=== PATIENT | male | born 1960 | race Two or more races ===

== ENCOUNTER 2025-06-06 10:52 | Emergency (ER) | payer SELFPAY ==
--- NOTE | 2025-06-06 11:16 | ED_ITS ---
<Statement entered by Ilana Santos DO - 06/06/25 14:05> I was consulted by the SKYLAR, and we discussed the complexity of the problems being addressed. I approved the treatment and management plan for this patient's care in the emergency department, thus performing a substantive portion of the medical decision making. Ilana Santos DO Discharge Plan Disposition Patient Disposition: Home, Self-Care Condition: Good Prescriptions Prescriptions: New methocarbamol 750 mg tablet 750 mg PO Q6H PRN (Reason: muscle spasm) Qty: 20 0RF Referrals Follow up/Referrals: Provider,Referral, MD [Primary Care Provider, Medical] - See instructions Activity Restrictions/Add. Instructions Additional Instructions/Restrictions: I recommend staying hydrated drinking electrolyte containing sports drinks while you are working outside. I would recommend reducing your heat exposure for the next 48 hours. If you have any persistent new or worsening signs or symptoms please follow-up with your PCP return to the ER as needed. Clinical Impressions Clinical Impression: Rhabdomyolysis Qualifiers: Rhabdomyolysis type: non-traumatic Qualified Code(s): M62.82 - Rhabdomyolysis Instructions Patient Instructions: DI for Diarrhea and Traveler's Diarrhea -- Adult, DI for Diarrhea and Traveler's Diarrhea -- Child, DI for Nausea -- Adult, DI for Nausea -- Child Print Language Print Language: [place] Discharge ED Provider: Ilana Santos General Adult HPI General Chief complaint: Nausea/Vomiting/Diarrhea Stated complaint: weak, neck pain, arm pain. Time Seen by Provider: 06/06/25 11:16 History of Present Illness HPI narrative: Patient presents for evaluation of multiple myalgias. Patient works outside [employer] and noted that he was very hot on . He started having muscle cramps over the weekend all over. He is taken nothing for it but also has not tried to treat it at home. He has no nausea vomiting diarrhea chest pain shortness of breath hemoptysis hematochezia melena hematemesis hematuria dysuria. Related Data Previous Rx's ?Medication ?Instructions ?Recorded methocarbamol 750 mg tablet 750 mg PO Q6H PRN muscle s pasm #20 06/06/25 tabs Allergies Allergy/AdvReac Type Severity Reaction Status Date / Time No Known Allergies Allergy Unverified 10/28/17 14:19 [facility] Disclaimer: The information contained in this section may have been updated after the patient was seen, as this information can be updated by other users. Social History Smoking Status: Current every day smoker alcohol intake: never current occupational status: employed Travel in the last 8 weeks?: None ROS Obtained: Yes Systems reviewed as appropriate & no additional complaints except as documented Physical Exam General General appearance: alert Respiratory Respiratory exam: Present normal lung sounds bilaterally Cardiovascular Cardiovascular exam: Present regular rate Neurological Exam Neurological exam: Present alert and oriented X3 Medical Decision Making Medical Records Medical records reviewed: Yes I reviewed the patient's medical records. Screening: Per USPSTF and CDC recommendations, given the prevalence of disease in our region, it is our hospital?s policy to screen for HIV and viral Hepatitis for all patients aged 18 and over and those with ongoing risk factors. Oswaldo Inquiry Pt receiving controlled substance: No Vital Signs: 06/06/25 11:27 06/06/25 11:31 06/06/25 12:00 Temperature 97.8 F Temperature Source Oral Pulse Rate 69 79 Respiratory Rate 16 Blood Pressure 127/94 H 133/75 Blood Pressure [Right Arm] 156/90 H Blood Pressure Mean [Right Arm] 112 Blood Pressure Source Blood Pressure Source [Right Arm] Automatic Cuff Blood Pressure Position 02 Sat by Pulse Oximetry 99 100 100 Oxygen Delivery Method Room Air 06/06/25 12:23 Temperature 97.8 F Temperature Source Oral Pulse Rate 72 Respiratory Rate 16 Blood Pressure 133/65 Blood Pressure [Right Arm] Blood Pressure Mean [Right Arm] Blood Pressure Source Automatic Cuff Blood Pressure Source [Right Arm] Blood Pressure Position Sitting 02 Sat by Pulse Oximetry Oxygen Delivery Method Room Air Lab Data Lab results reviewed: Yes I reviewed the patient's lab results. Lab Results 06/06/25 11:35: WBC 6.7, RBC 4.78, Hgb 16.0, Hct 46.5, MCV 97.3 H, MCH 33.5 H, MCHC 34.4, RDW 12.3, Plt Count 204, MPV 10.6 H, Neut % (Auto) 64.8, Lymph % (Auto) 26.8, [place] % (Auto) 7.0, Eos % (Auto) 0.4, Baso % (Auto) 0.7, Neut # (Auto) 4.4, Lymph # (Auto) 1.8, [place] # (Auto) 0.5, Eos # (Auto) 0.0, Baso # (Auto) 0.1, ESR 22 H, PT 10.7, INR 0.96, D-Dimer 0.47, Sodium 137, Potassium 4.2, Chloride 99, Carbon Dioxide 29, Anion Gap 13.2, BUN 29 H, Creatinine 1.20, Estimated Creat Clear 51, Estimated GFR 61, Est GFR ( Amer) 74, Glucose 149 H, Calcium 9.7, Magnesium 2.4 H, Total Bilirubin 1.0, AST 49, ALT 29, Alkaline Phosphatase 121, Total Creatine Kinase 326 H, Troponin I < 0.01, C- Reactive Protein 1.4, Total Protein 8.3 H, Albumin 4.8, Globulin 3.5 H, Albumin/Globulin Ratio 1.4, Procalcitonin 0.055, TSH 1.75, Free T4 Index 2.8 L, Thyroxine (T4) 8.4, T3 Uptake 33 06/06/25 12:20: Urine Color Yellow, Urine Appearance Sl cloudy, Urine pH 6.0, Ur Specific [place] 1.025, Urine Protein Negative, Urine Glucose (UA) 1+, Urine Ketones Negative, Urine Blood Negative, Urine Nitrate Negative, Urine Bilirubin Negative, Urine Urobilinogen 1.0, Ur Leukocyte Esterase Negative, Urine RBC None, Urine WBC Occasional, Ur Squamous Epith Cells Occasional, Urine Bacteria 1+, Hyaline Casts Occ 06/06/25 11:35 06/06/25 11:35 Orders (Tests/Meds): ED MEDICATIONS Discontinued Medications Generic Name Dose Route Start Last Admin Trade Name Reese PRN Reason Stop Dose Admin Acetaminophen 1,000 mg 06/06/25 11:24 06/06/25 11:37 Acetaminophen 500mg Tab PO 06/06/25 11:25 1,000 mg ONCE ONE Administration Sodium Chloride 1,000 mls @ 999 mls/hr 06/06/25 11:24 06/06/25 11:37 Sod Chlor 0.9% 1000ml Bag IV 06/06/25 12:24 999 mls/hr .Q1H1M ONE Administration Magnesium Sulfate 2 gm in 50 mls @ 50 mls/hr 06/06/25 11:24 06/06/25 11:37 Magnesium Sulfate 2gm/50ml Premix IV 06/06/25 12:23 50 mls/hr ONCE ONE Administration Methocarbamol 500 mg 06/06/25 11:24 06/06/25 11:36 Methocarbamol 500mg Tablet PO 06/06/25 11:25 500 mg ONCE ONE Administration ORDERS Category Date Time Status CBC w/Auto Diff [Complete Blood Count Auto Diff] Stat Lab 06/06/25 11:35 Completed CK [Creatine Kinase] Stat Lab 06/06/25 11:35 Completed CMP [Comprehensive Metabolic Panel] Stat Lab 06/06/25 11:35 Completed CRP [C-Reactive Protein] Stat Lab 06/06/25 11:35 Completed D-Dimer Stat Lab 06/06/25 11:35 Completed ESR [Erythrocyte Sedimentation Rate] Stat Lab 06/06/25 11:35 Completed INR [Prothrombin Time INR] Stat Lab 06/06/25 11:35 Completed Magnesium Stat Lab 06/06/25 11:35 Completed Procalcitonin Stat Lab 06/06/25 11:35 Completed Thyroid Panel Stat Lab 06/06/25 11:35 Completed Trop I [Troponin I] Stat Lab 06/06/25 11:35 Completed UA [Urinalysis and Microscopic] Stat Lab 06/06/25 12:20 Completed Medical Decision Narrative: In summary patient is a 65-year-old male who presents to the emergency department for evaluation of multiple myalgias. Patient is hemodynamically stable upon arrival, afebrile. Physical exam is remarkable for muscle soreness essentially all over but no focal muscle weakness or neurologic gait defect. Breath sounds clear equal bilateral to the bases cardiovascular S1-S2 regular rate rhythm without murmurs gallops or thrills abdomen soft nontender no rebound or guarding no rigidity. Bowel sounds normal active. Patient is amatory in the ER and neurovascular intact in fall 4 extremities.. Differential diagnosis includes heat exhaustion versus rhabdomyolysis versus electrolyte abnormality etc. Initial workup will be conducted with hematologic labs. Initial interventions include crystalloid bolus Tylenol Robaxin Toradol. Initial workup reviewed by me shows his white count 6.7 normal H&H with no neutrophilic shift sed rate is 22 INR 0.47 chemistry showed BUN of 29 creatinine 1.2 GFR is 51 glucose 149 magnesium is 2.4 CK is 326 troponin is undetectable at less than 0.01 and TSH is 1.75 urinalysis is bland. Upon repeat evaluation significant improvement after initial intervention. Given this patient is appropriate for discharge with prescription for Robaxin and recommendations for heat avoidance for at least 48 more hours and continued hydration at home. The patient is tolerating oral intake here. Patient was given strict return precautions. Critical Care Critical Care Time Critical Care Time: No
[2025-06-06 11:27] VITALS: BP 156/90; RESP 16; TEMP 36.6; O2SAT 99; BMI 20.1
[2025-06-06 11:31] VITALS: BP 127/94; PULSE 69; O2SAT 100
[2025-06-06] MEDS: METHOCARBAMOL 500MG TABLET 500 MG PO (11:36)
[2025-06-06] MEDS: ACETAMINOPHEN 500MG TAB 1000 MG PO (11:37)
[2025-06-06] MEDS: MAGNESIUM SULFATE IN WATER 2 GM/50 ML PIGGYBACK IV (11:37)
[2025-06-06] MEDS: 0.9 % SODIUM CHLORIDE 1000ML 1,000 ML 999 ML IV (11:37)
[2025-06-06 11:44] LABS: Hematocrit 46.5 % (42.0-52.0); Hemoglobin 16.0 g/dL (14.1-18.0); Immature Granulocytes % 0.3 %; Mean Corpuscular HGB Conc 34.4 g/dL (31.8-35.4); Mean Corpuscular Hemoglobin 33.5 pg (27.0-31.2); Mean Corpuscular Volume 97.3 fl (80-94); Nucleated Red Blood Cells % 0 %; Platelet Count 204 K/mm3 (142-424); Red Blood Count 4.78 M/mm3 (4.60-6.20); Red Cell Distribution Width-SD 44.3 fL; White Blood Count 6.7 K/mm3 (4.8-10.8)
[2025-06-06 11:52] LABS: INR 0.96 (0.9-1.1); Prothrombin Time 10.7 seconds (10.1-12.5)
[2025-06-06 11:53] LABS: Alanine Aminotransferase 29 U/L (12-78); Albumin Level 4.8 g/dl (3.5-5.0); Albumin/Globulin Ratio 1.4 (1.1-1.8); Alkaline Phosphatase 121 U/L (38-126); Anion Gap 13.2 mEq/L (5-15); Aspartate Amino Transferase 49 U/L (17-59); Bilirubin,Total 1.0 mg/dl (0.2-1.3); Blood Urea Nitrogen 29 mg/dl (9-20); Calcium 9.7 mg/dl (8.4-10.2); Carbon Dioxide 29 mmol/L (22.0-30.0); Chloride 99 mmol/L (98-107); Creatine Kinase 326 U/L (55-170); Creatinine Clearance Estimated 51 mL/min (50-200); Creatinine,Serum 1.20 mg/dl (0.66-1.25); Estimated Glomerular Filt Rate 61 ml/min (>60); GFR (African American) 74 ML/MIN (>60); Globulin 3.5 g/dL (1.3-3.2); Glucose 149 mg/dl (74-100); Magnesium 2.4 mg/dl (1.6-2.3); Potassium 4.2 mmoL/L (3.5-5.1); Sodium 137 mmol/L (136-145); Total Protein,Serum 8.3 g/dl (6.3-8.2)
[2025-06-06 11:58] LABS: C-Reactive Protein 1.4 mg/L (0-4)
[2025-06-06 12:00] VITALS: BP 133/75; PULSE 79; O2SAT 100
[2025-06-06 12:08] LABS: D-Dimer 0.47 ug/mL (0.0-0.5)
[2025-06-06 12:09] LABS: Troponin I < 0.01 ng/ml (0.00-0.034)
[2025-06-06 12:12] LABS: Procalcitonin 0.055 ng/mL (0.0-2.0)
[2025-06-06 12:23] VITALS: BP 133/65; PULSE 72; RESP 16; TEMP 36.6; O2SAT 98
[2025-06-06 12:24] LABS: Free Thyroxine Index 2.8 ug/dL (5.93-13.13); T4 (Thyroxine) 8.4 ug/dl (5.53-11.0); Triiodothryronine (T3) Uptake 33 % (23.5-40.5)
[2025-06-06 12:24] LABS: Microscopic, Urine URINE MICROSCOPIC (MICROSCOPIC)
[2025-06-06 12:25] LABS: Bilirubin,Urine Negative (Negative); Color,Urine YELLOW (Yellow); Glucose,Urine (UA) 1+ (Negative); Ketones,Urine Negative (Negative); Leukocyte Esterase,Urine Negative (Negative); PH,Urine 6.0 (5.0-8.5); Protein,Urine Negative (Negative); Specific Gravity, Urine 1.025 (1.005-1.030); Urobilinogen,Urine 1.0 EU/dl (0.2)
[2025-06-06 12:33] LABS: Bacteria,Urine 1+ /lpf; Hyaline Casts,Urine OCC #/lpf (0); Squamous Epithelial Cell,Urine Occasional #/hpf (0-5); WBC,Urine Occasional #/hpf (0-3)
[2025-06-06 12:38] LABS: Thyroid Stimulating Hormone 1.75 uIU/mL (0.465-4.68)
== END 2025-06-06 13:02 | disposition home or self-care (01) ==
PROVIDERS: Physician Assistant; Emergency Provider Emergency Medicine
DX: M62.82 Rhabdomyolysis (principal); F17.200 Nicotine dependence, unspecified, uncomplicated
CPT/HCPCS: 80053; 81001; 82550; 83735; 84145; 84436; 84443; 84479; 84484; 85025; 85378; 85610; 85651; 86140; 96361; 96365; 96375; 99285; J3475; J7030